=== PATIENT | male | born 1985 | race Caucasian/White ===

== ENCOUNTER 2021-11-14 02:55 | Emergency (ER) | payer OTHER, MEDICAID, SELFPAY ==
[2021-11-14 03:10] VITALS: BP 136/77; PULSE 96; RESP 17; TEMP 37.2; O2SAT 100; BMI 31.6
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
[2021-11-14] MEDS: DOXYCYCLINE HYCLATE 100 MG TABLET PO (03:24)
[2021-11-14 03:46] LABS: D Dimer 218 ng/mL (<230)
== END 2021-11-14 04:03 | disposition home or self-care (01) ==
PROVIDERS: Emergency Provider Emergency Medicine
DX: L03.115 Cellulitis of right lower limb (principal)
CPT/HCPCS: 85379; 99283